=== PATIENT | female | born 1980 | race Caucasian/White ===

== ENCOUNTER → 2016-10-05 | Outpatient (CLI) | payer BC ==
[~2016-10-05] MED LIST: BCPILLS PO; CYAN100020 PO; ESCI10TA17 PO; GABA-113 PO; GLUC250C PO; LACTCAP3; LAMO150T32 PO; MAGN250T8 PO; MULT-506 PO; OMEP40CA PO; SUMA100T16 PO; TOPI50TA16 PO; TRAM-10 PO
--- NOTE | 2016-10-05 12:24 | DIAGNOSTIC IMAGING REPORT ---
RIGHT FOOT MIN 3 VIEWS CLINICAL HISTORY: RIGHT FOOT PAIN Right COMPARISON: None. DISCUSSION: The bones and joint spaces appear intact. There is no evidence of fracture, dislocation or bony disease. There is no evidence for soft tissue swelling. IMPRESSION: Negative study. Electronically signed by: Ed Figueroa M.D. 10/05/2016 12:23 PM Dictated Date/Time: 10/05/2016 12:22 PM
== END | disposition home or self-care (01) ==
LOC: C.RDSM 11:40
PROVIDERS: ATTEND Family Medicine
DX: M79.671 Pain in right foot (principal)

== ENCOUNTER → 2016-12-15 | Outpatient (CLI) | payer BC ==
[2016-12-15 10:35] LABS: C-REACTIVE PROTEIN 0.96 mg/dl (0-0.29); RHEUMATOID FACTOR < 10.0 U/mL (0-15)
[2016-12-18 18:43] LABS: ANTI-SS-A <1.0 NEG AI (<1.0 NEG); ANTI-SS-B <1.0 NEG AI (<1.0 NEG)
== END | disposition home or self-care (01) ==
LOC: C.LAB1850 09:15
PROVIDERS: ATTEND Psychiatry & Neurology Neurology
DX: G43.909 Migraine, unspecified, not intractable, without status migrainosus (principal); M19.90 Unspecified osteoarthritis, unspecified site